=== PATIENT | female | born 1950 | race Hispanic/Latino ===

== ENCOUNTER 2020-02-22 13:21 | Emergency (ER) | payer MEDICARE ==
[2020-02-22 13:55] LABS: BASOPHILS % (AUTO) 0.3 % (0.0-5.0); EOSINOPHILS % (AUTO) 2.4 % (0.0-8.0); HEMATOCRIT 38.7 % (36-48); LYMPHOCYTES % (AUTO) 26.9 % (21.0-51.0); MEAN CORPUSCULAR HEMOGLOBIN 30.7 pg (27.0-33.0); MEAN CORPUSCULAR HGB CONC 33.6 g/dL (32.0-36.0); MEAN CORPUSCULAR VOLUME 91.3 fL (79-99); MONOCYTES % (AUTO) 8.5 % (3.0-13.0); NEUTROPHILS % (AUTO) 61.5 % (40.0-77.0); PLATELET COUNT (AUTO) 225 K/uL (130-400); RED BLOOD CELL COUNT(AUTO) 4.24 MIL/uL (4.00-5.50); RED CELL DISTRIBUTION WIDTH 13.5 % (11.0-15.5); WHITE BLOOD COUNT (AUTO) 7.6 K/uL (4.8-10.8)
[2020-02-22 14:06] LABS: CREATININE 0.8 mg/dL (0.5-1.5); POTASSIUM 3.6 mmol/L (3.5-5.1)
[2020-02-22 14:10] LABS: ALBUMIN 3.7 g/dL (3.5-5.0); BILIRUBIN,TOTAL 0.4 mg/dL (0.2-1.0); TOTAL PROTEIN, SERUM 7.8 g/dL (6.0-8.3)
[2020-02-22] MEDS ORDERED: MAG HYDROX/AL HYDROX/SIMETH ES 30 ML SUSP UDCUP ONE (14:34)
[2020-02-22] MEDS ORDERED: LIDOCAINE HCL 2% VISCOUS 15 ML UDCUP ONE (14:34)
[2020-02-22 17:08] LABS: APPEARANCE,URINE Clear (CLEAR); BILIRUBIN,URINE Negative (NEGATIVE); COLOR,URINE Yellow (YELLOW); GLUCOSE, URINE (UA) Negative (NEGATIVE); KETONES,URINE Negative (NEGATIVE); LEUKOCYTE ESTERASE ,URINE Moderate (NEGATIVE); NITRATE,URINE Negative (NEGATIVE); OCCULT BLOOD,URINE Large (NEGATIVE); PH,URINE 5.5 (5.0-8.0); PROTEIN,URINE Trace mg/dL (NEGATIVE)
[2020-02-22 17:50] LABS: BACTERIA,URINE Few /HPF (None Seen); MUCUS,URINE Few LPF (None Seen); RBC,URINE 0-1 /HPF (0-1); SQUAMOUS EPITHELIAL CELL,UR 0-2 /HPF (0-2)
== END 2020-02-22 18:09 | disposition home or self-care (01) ==
LOC: EDH 13:21
DX: R07.89 Other chest pain (principal); N39.0 Urinary tract infection, site not specified; E03.9 Hypothyroidism, unspecified; E78.00 Pure hypercholesterolemia, unspecified
CPT/HCPCS: 36415; 80053; 81001; 83690; 84484; 85025; 87088; 93005; 96374; 96375

== ENCOUNTER 2020-08-10 20:01 | Inpatient (IN) | payer MEDICARE, OTHER ==
[~2020-08-10] VITALS: Ht 152.4 cm; Wt 71.2 kg
[2020-08-10 21:21] LABS: BASOPHILS % (AUTO) 0.1 % (0.0-5.0); HEMATOCRIT 39.4 % (36-48); LYMPHOCYTES % (AUTO) 17.9 % (21.0-51.0); MEAN CORPUSCULAR HEMOGLOBIN 29.7 pg (27.0-33.0); MEAN CORPUSCULAR VOLUME 87.4 fL (79-99); MONOCYTES % (AUTO) 6.3 % (3.0-13.0); NEUTROPHILS % (AUTO) 75.3 % (40.0-77.0); PLATELET COUNT (AUTO) 148 K/uL (130-400); RED BLOOD CELL COUNT(AUTO) 4.51 MIL/uL (4.00-5.50); WHITE BLOOD COUNT (AUTO) 6.7 K/uL (4.8-10.8)
[2020-08-10 21:34] LABS: CARBON DIOXIDE 24 mmol/L (21-32); CHLORIDE 100 mmol/L (101-111); CREATININE 0.9 mg/dL (0.5-1.5); GLOMERULAR FILTR. RATE CALC 66 mL/min (>60); GLUCOSE,RANDOM 125 mg/dL (70-105); POTASSIUM 3.7 mmol/L (3.5-5.1); SODIUM SERUM 136 mmol/L (136-145); UREA NITROGEN, BLOOD 14 mg/dL (7-18)
[2020-08-10 21:46] LABS: ALANINE AMINOTRANSFERASE 48 U/L (12-78); ALBUMIN 3.3 g/dL (3.5-5.0); ASPARTATE AMINOTRANSFERASE 78 U/L (10-37); BILIRUBIN,TOTAL 0.6 mg/dL (0.2-1.0); CREATINE KINASE, TOTAL 162 U/L (21-232); MYOGLOBIN 86 ng/mL (10-92); TOTAL PROTEIN, SERUM 7.5 g/dL (6.0-8.3); TROPONIN I < 0.04 ng/mL (0.00-0.06)
[2020-08-10] MEDS ORDERED: ACETAMINOPHEN 500 MG TABLET ONE (21:59)
[2020-08-10] MEDS ORDERED: KETOROLAC 15MG/ML VIAL (15MG/ML) ONE (21:59)
[2020-08-10] MEDS ORDERED: 0.9%NACL 1000ML 1,000 ML IV ONE (22:00)
[2020-08-10 22:05] LABS: INR 0.98 (0.85-1.15); PROTHROMBIN TIME 10.7 SEC (9.6-11.6)
[2020-08-10 22:06] LABS: PARTIAL THROMBOPLASTIN TIME 28.9 SEC (26.3-35.5)
[2020-08-10] MEDS ORDERED: AZITHROMYCIN 250 MG TABLET PO ONE (23:10)
[2020-08-10] MEDS ORDERED: CEFTRIAXONE 1G VIAL ONE (23:10)
[2020-08-10] MEDS ORDERED: DEXAMETHASONE SOD PHOSPHATE 10MG/ML 1ML VIAL ONE (23:10)
[2020-08-11] MEDS ORDERED: DOXYCYCLINE HYCLATE 100 MG TABLET PO ONE (02:31)
[2020-08-11 04:45] VITALS: BP 133/73
[2020-08-11] MEDS ORDERED: ROSU20TA31 PO (05:59)
[2020-08-11] MEDS ORDERED: CHOL200012 PO (06:00)
[2020-08-11] MEDS ORDERED: AEC81 PO (06:01)
[2020-08-11] MEDS ORDERED: OMEP-420 PO (06:02)
[2020-08-11] MEDS ORDERED: LEVO100C4 PO (06:02)
[2020-08-11] MEDS ORDERED: BUDE1AMP IH (06:03)
[2020-08-11 08:00] VITALS: BP 123/70
[2020-08-11 12:00] VITALS: BP 130/79
[2020-08-11] MEDS ORDERED: PHARMACY COMMUNICATION MISC SCH ×2 (12:15→12:30)
[2020-08-11 13:36] LABS: CRP QUANTITATIVE 90.4 mg/L (0.00-9.0)
[2020-08-11] MEDS ORDERED: REMDESIVIR (EUA) 520 200 MG in 0.9% NACL 250ML 250 ML IV ONE (14:00)
[2020-08-11] MEDS ORDERED: COMPOUND IV REFRIGERATED 1 EACH IVSOLN MISC PRN (14:00)
[2020-08-11] MEDS ORDERED: ALBUTEROL INHALER 90MCG/INH IH PRN (15:30)
[2020-08-11 16:00] VITALS: BP 143/67
[2020-08-11 16:32] LABS: ABG BASE EXCESS -1.5 mmol/L (-2.0-3.0); ABG HCO3 22.3 mmol/L (21.0-28.0); ABG OXYGEN SATURATION 92.9 % (95.0-99.0); ABG PCO2 35 mmHg (32-45)
[2020-08-11 19:20] VITALS: BP 124/71
[2020-08-11 23:57] VITALS: BP 127/68
[2020-08-12] MEDS: GUAIFENESIN-CODEINE 5 ML SYRUP PO PRN ×2 (02:49→23:12)
[2020-08-12 03:30] VITALS: BP 110/73
[2020-08-12 04:12] LABS: CREATININE 0.7 mg/dL (0.5-1.5); POTASSIUM 3.6 mmol/L (3.5-5.1)
[2020-08-12] MEDS: PHARMACY COMMUNICATION MISC SCH ×7 (06:00→19:00)
[2020-08-12] MEDS: REMDESIVIR LABS MISC SCH (06:00)
[2020-08-12 08:00] VITALS: BP 110/55
[2020-08-12] MEDS: DEXAMETHASONE 4 MG TAB PO SCH (08:31)
[2020-08-12 12:00] VITALS: BP 114/71
[2020-08-12 13:35] LABS: ALBUMIN 2.8 g/dL (3.5-5.0); BILIRUBIN,DIRECT 0.1 mg/dL (0.0-0.3); BILIRUBIN,TOTAL 0.3 mg/dL (0.2-1.0); TOTAL PROTEIN, SERUM 6.9 g/dL (6.0-8.3)
[2020-08-12] MEDS: REMDESIVIR (EUA) 520 100 MG in 0.9% NACL 250ML 250 ML IV SCH (14:46)
[2020-08-12 16:00] VITALS: BP 106/71
[2020-08-12 20:20] VITALS: BP 128/77
[2020-08-12 23:30] VITALS: BP 123/76
[2020-08-13 03:57] VITALS: BP 114/61
[2020-08-13 05:24] LABS: CREATININE 0.7 mg/dL (0.5-1.5); POTASSIUM 3.8 mmol/L (3.5-5.1)
[2020-08-13 08:00] VITALS: BP 130/64
[2020-08-13] MEDS: REMDESIVIR LABS MISC SCH (08:00)
[2020-08-13] MEDS: DEXAMETHASONE 4 MG TAB PO SCH (08:10)
[2020-08-13 11:33] LABS: ALBUMIN 2.8 g/dL (3.5-5.0); BILIRUBIN,DIRECT 0.1 mg/dL (0.0-0.3); BILIRUBIN,TOTAL 0.4 mg/dL (0.2-1.0); TOTAL PROTEIN, SERUM 6.2 g/dL (6.0-8.3)
[2020-08-13 13:02] VITALS: BP 131/70
[2020-08-13] MEDS: REMDESIVIR (EUA) 520 100 MG in 0.9% NACL 250ML 250 ML IV SCH (13:48)
[2020-08-13 16:00] VITALS: BP 149/75
[2020-08-13 20:00] VITALS: BP 130/75
[2020-08-13] MEDS: GUAIFENESIN-CODEINE 5 ML SYRUP PO PRN (22:24)
[2020-08-14 04:00] VITALS: BP 126/72
[2020-08-14 05:31] LABS: ALBUMIN 2.7 g/dL (3.5-5.0); BILIRUBIN,DIRECT 0.1 mg/dL (0.0-0.3); BILIRUBIN,TOTAL 0.5 mg/dL (0.2-1.0); CREATININE 0.6 mg/dL (0.5-1.5); TOTAL PROTEIN, SERUM 6.6 g/dL (6.0-8.3)
[2020-08-14 08:00] VITALS: BP 136/90
[2020-08-14] MEDS: REMDESIVIR LABS MISC SCH (08:00)
[2020-08-14] MEDS: DEXAMETHASONE 4 MG TAB PO SCH (08:36)
[2020-08-14 12:00] VITALS: BP 114/56
[2020-08-14] MEDS: REMDESIVIR (EUA) 520 100 MG in 0.9% NACL 250ML 250 ML IV SCH (14:25)
[2020-08-14 16:00] VITALS: BP 131/78
[2020-08-14 20:00] VITALS: BP 129/87
[2020-08-14] MEDS: GUAIFENESIN-CODEINE 5 ML SYRUP PO PRN (20:03)
[2020-08-15 04:00] VITALS: BP 126/66
[2020-08-15 05:11] LABS: HEMATOCRIT 39.8 % (36-48); MEAN CORPUSCULAR HEMOGLOBIN 28.4 pg (27.0-33.0); MEAN CORPUSCULAR HGB CONC 32.7 g/dL (32.0-36.0); MEAN CORPUSCULAR VOLUME 86.9 fL (79-99); RED BLOOD CELL COUNT(AUTO) 4.58 MIL/uL (4.00-5.50); RED CELL DISTRIBUTION WIDTH 13.6 % (11.0-15.5); WHITE BLOOD COUNT (AUTO) 9.9 K/uL (4.8-10.8)
[2020-08-15 05:43] LABS: ALBUMIN 2.8 g/dL (3.5-5.0); BILIRUBIN,DIRECT 0.1 mg/dL (0.0-0.3); BILIRUBIN,TOTAL 0.5 mg/dL (0.2-1.0); CREATININE 0.6 mg/dL (0.5-1.5); MAGNESIUM 2.1 mg/dL (1.80-2.40); POTASSIUM 3.4 mmol/L (3.5-5.1); TOTAL PROTEIN, SERUM 6.7 g/dL (6.0-8.3)
[2020-08-15] MEDS: REMDESIVIR LABS MISC SCH (06:00)
[2020-08-15 08:00] VITALS: BP 136/74
[2020-08-15] MEDS: DEXAMETHASONE 4 MG TAB PO SCH (08:27)
[2020-08-15 12:00] VITALS: BP 131/74
[2020-08-15] MEDS: REMDESIVIR (EUA) 520 100 MG in 0.9% NACL 250ML 250 ML IV SCH (14:59)
[2020-08-15 16:00] VITALS: BP 117/74
[2020-08-15] MEDS ORDERED: DEXA6TAB7 PO (18:18)
== END 2020-08-15 19:01 | disposition home or self-care (01) | DRG 177 ==
LOC: EDH 20:01 → EDHIP 08-11 00:45 → 2AH 08-11 04:50
PROVIDERS: ADMIT Internal Medicine Infectious Disease; ATTEND Internal Medicine Infectious Disease
PROC: XW033E5 Introduction of Remdesivir Anti-infective into Peripheral Vein, Percutaneous Approach, New Technology Group 5 (ICD-10-PCS; principal; 2020-08-11)
DX: U07.1 COVID-19 (principal); J96.01 Acute respiratory failure with hypoxia; J12.82 Pneumonia due to coronavirus disease 2019; E78.5 Hyperlipidemia, unspecified; K29.70 Gastritis, unspecified, without bleeding; E11.9 Type 2 diabetes mellitus without complications; E89.0 Postprocedural hypothyroidism; E66.9 Obesity, unspecified; I10 Essential (primary) hypertension; Z86.718 Personal history of other venous thrombosis and embolism; Z68.30 Body mass index [BMI] 30.0-30.9, adult
CPT/HCPCS: 36415; 36600; 71045; 80048; 80053; 80076; 82550; 82565; 82728; 82803; 82948; 83605; 83615; 83735; 83874; 83880; 84145; 84484; 85025; 85027; 85378; 85610; 85730; 86140; 86900; 86901; 87040; 87426; 93005; 93970; 94760; G0378; J0696; J1100; J1885; J7030; J7050; J8540